=== PATIENT | male | born 1995 | race Two or more races ===

== ENCOUNTER 2022-09-11 23:23 | Emergency (ER) | payer MEDICAID ==
[~2022-09-11] VITALS: Ht 167.6 cm; Wt 66.2 kg
[2022-09-11 23:53] VITALS: BP 134/76
--- NOTE | 2022-09-12 | NUR ---
BIBFAMILY C/O R FOOT PAIN. PT AMBULATORY WITH STEADY GAIT.
[2022-09-12] MEDS ORDERED: IBUPROFEN 600 MG TABLET PO ONE (00:30)
[2022-09-12] MEDS ORDERED: IBUPROFEN 600 MG TABLET ONE (00:50)
--- NOTE | 2022-09-12 01:41 | NUR ---
Patient discharged to home in stable condition. Written and verbal after care instructions given. Patient verbalizes understanding of instruction.
== END 2022-09-12 01:44 | disposition home or self-care (01) ==
LOC: ER 23:26
DX: M79.671 Pain in right foot (principal)
CPT/HCPCS: 73630-TC